=== PATIENT | female | born 1960 | race Caucasian/White ===

== ENCOUNTER 2018-02-26 07:39 | Outpatient (CLI) | payer OTHER, SELFPAY ==
[2018-02-26 07:50] VITALS: BP 115/73; PULSE 77; RESP 16; TEMP 37.1; O2SAT 97
--- NOTE | 2018-02-26 08:53 | DI.RAD_ITS ---
SYMPTOM/DIAGNOSIS: SACROILIAC JOINT DYSFUNCTION C-ARM: Fluoroscopy Time: 20.2 seconds 6.21mGy Fluoroscopy was provided for guidance with pain clinic SI joint injection. Hard copy images show placement of a needle at the inferior left SI joint. Please see procedure note for details.
[2018-02-26] MEDS: Bupivacaine 0.5% Pres-Free 30 ML VIAL IJ (09:25)
[2018-02-26] MEDS: methylPREDNISolone ACETATE 80 MG/ML VIAL IJ (09:26)
[2018-02-26 09:27] VITALS: BP 119/70; PULSE 72; RESP 18; O2SAT 100
[2018-02-26] MEDS: Omnipaque 240 MG/ML 50 ML BTL IJ (09:27)
--- NOTE | 2018-02-26 09:27 | PDOC.PAIN_ITS ---
Pain Clinic Procedure Note Current Active Problems Problem Status Onset Postlaminectomy syndrome of lumbar region Acute Sacroiliac joint dysfunction of left side Acute INTRA-ARTICULAR SI JOINT INJECTION RENEE BARFIELDNEFTALICLARENCE has been referred to the [facility] for intra- articular SI joint injection. COMMENTS: Patient is here for frequency ablation of her left SI joint. She had her last one done in June 2017. This was a cooled radiofrequency ablation. She said this. Previously she had 3 traditional radiofrequency ablations which did give her over 6 months relief on each occasion. She had radiofrequency ablation of the lumbar facet nerves which did not help. She also had SI joint injections which did help transiently. She continues to complain of pain into her left lower extremity on occasion. She has a persistent left foot drop. She notes that a few weeks after the procedure she has been complaining headache daily. The headache is not constant but comes and goes. She has seen Roberta Thao in January of this year and the recommendation was to obtain an updated MRI and then consider either transforaminal injection or repeating the traditional RF. I examined her today: Physical exam: Kemps maneuver was negative. She had a positive Gaenslen and Ben's maneuver for SI pain. Piyush sign is positive. When neurologic exam she has decreased sensation in her left lower extremity laterally on the dorsum of her foot. She has weakness on both flexion and extension at the ankle on the left. DTRs are decreased but symmetrically at the patella and Achilles. Impression: Postlaminectomy syndrome with L5 and L4 nerve involvement. SI joint dysfunction. I cannot explain why the last radiofrequency ablation was not effective as the cooled radiofrequency should be more effective. I also do not have an explanation for her daily headaches. Recommendation: #1. We will proceed with SI joint injection today for both diagnostic and therapeutic response. #2. If the above is not effective then we will obtain an updated MRI of her lumbar spine and reevaluate patient. #3. The above is effective but does not last would consider trying additional RF for more. #4. We briefly discussed spinal cord stimulation as an option for her chronic back and leg pain to think reviewed good option for her. I would like to see her back in the office to have a more thorough discussion of this. #5. I am referring her to neurology for evaluation of her headache. Consider nerve testing to better evaluate left lower extremity weakness. Patient was interviewed and the medical record reviewed. There were no medical , pharmacologic, radiographic or other structural contraindications to attempting fluoroscopically guided intra-articular SI joint injection. Risks and expected side effects as well as potential benefit of the procedure were reviewed and voiced concerns addressed. The printed consent form was signed and witnessed. Standard time-out procedure was performed. Patient was placed in the prone position on the fluoroscopy table and automated blood pressure cuff and pulse oximeter applied. The skin entry point for approaching {/left/} SI joints was identified under the most advantageous fluoroscopic view and marked. Following thorough Chlorhexadine preparation of the skin and draping and 1% lidocaine infiltration of the skin entry point and subcutaneous tissues, a 22 gauge spinal needle was placed under fluoroscopic guidance into { left/} SI joints was identified under the most advantageous fluoroscopic view and marked. Following thorough Chlorhexadine preparation of the skin and draping and 1% lidocaine infiltration of the skin entry point and subcutaneous tissues, a 22 gauge spinal needle was placed under fluoroscopic guidance into { left/ } SI joint. Intra-articular placement was confirmed by a clear arthrogram resulting from the injection of 0.25ml Omnipaque 240, 1ml 0.5% bupivacaine, and half ml (40mg) of 80mg concentration Depomedrol were injected intra- articularily with an initial reproduction of a significant component of the usual pain. Vital signs were stable throughout the procedure and were as recorded in the docflowsheet by the nursing staff. If given, dosages of intravenous drugs for anxiolysis and analgesia were documented in MAR. Follow up plans and appointments were discussed with the patient. Post procedure instruction was given as documented in nursing documentation and having met discharge criteria, and was discharged from the [facility]. COMMENTS: Pain went from 11/13-09/13. She will follow-up as needed. See comment above. CC: Orlando Gomez
== END 2018-02-26 07:59 ==
PROVIDERS: PCP Family Medicine; Visit Provider Anesthesiology Pain Medicine
DX: M53.3 Sacrococcygeal disorders, not elsewhere classified (principal); M54.5 Low back pain; M96.1 Postlaminectomy syndrome, not elsewhere classified
CPT/HCPCS: 27096; 72200; J1040; J2250; J3010; Q9967

== ENCOUNTER 2018-04-03 00:32 | Outpatient (CLI) | payer OTHER, SELFPAY ==
--- NOTE | 2018-04-03 08:35 | DI.MRI_ITS ---
SYMPTOMS/DIAGNOSIS: BACK PAIN MRI OF THE LUMBAR SPINE: Comparison is made with [id number]. T 1, T 2 and STIR sagittal and T 1 and T 2 axial sequences were performed. The patient is again noted to be status post laminectomy at L 5. There is mild post surgical scarring. There is moderate loss of disc height. There are circumferentially projecting endplate osteophytes and mild broad based disc bulging. There is moderate to severe bilateral neural foraminal narrowing, left greater than right. The T 12 - L 1 and L 1 - 2 discs appear intact. At L 2 - 3, there is mild disc bulging but no significant neural foraminal narrowing or central canal stenosis. At L 3 - 4, there is moderate broad based disc bulging. There is mild ligamentous hypertrophy. The findings combine to produce mild bilateral neural foraminal narrowing. The L 5 - S 1 disc appears normal. There are facet degenerative changes causing mild bilateral neural foraminal narrowing. The marrow signal and conus medullaris are unremarkable. IMPRESSION: Post surgical changes at L 4 - 5. There are degenerative disc changes causing moderate to severe bilateral neural foraminal narrowing. There is no evidence of a new or recurrent disc herniation.
== END 2018-04-03 00:52 ==
PROVIDERS: PCP Family Medicine; Visit Provider Nurse Practitioner Family
DX: M54.5 Low back pain (principal); M51.36 Other intervertebral disc degeneration, lumbar region; M99.53 Intervertebral disc stenosis of neural canal of lumbar region
CPT/HCPCS: 72148

== ENCOUNTER 2018-04-04 13:44 | Outpatient (CLI) | payer OTHER, SELFPAY ==
[2018-04-04 13:49] VITALS: BP 97/66; PULSE 85; RESP 18; TEMP 36.7; O2SAT 97
--- NOTE | 2018-04-04 13:52 | DI.RAD_ITS ---
SYMPTOMS/DIAGNOSIS: LUMBAR RADICULOPATHY C-ARM FLUOROSCOPY, PAIN CLINIC, LUMBAR SPINE: Fluoroscopy Time: 19.2 sec C-arm fluoroscopy was utilized by Dr. Jade during reported steroid injection. Hard copy shows needle placement at the left neural foramen at what appears to be the L5-S1 level with injection in the epidural space.
[2018-04-04 14:23] VITALS: BP 133/69; PULSE 81; RESP 16; O2SAT 99
[2018-04-04] MEDS: Dexamethasone Sod. Phos./Pres-Free 10 MG/ML VIAL IJ (14:25)
[2018-04-04] MEDS: Omnipaque 240 MG/ML 50 ML BTL IJ (14:25)
--- NOTE | 2018-04-04 14:26 | PDOC.PAIN_ITS ---
Pain Clinic Procedure Note Current Active Problems Problem Status Onset Lumbar radicular syndrome Acute LUMBAR / SACRAL TRANSFORAMINAL INJECTION RENEE BROOKS has been referred to the [facility] for a transforaminal nerve root block and steroid injection. COMMENTS: Patient was interviewed and the medical record reviewed. There were no medical , pharmacologic, radiographic or other structural contraindications to attempting fluoroscopically guided transforaminal nerve root block and epidural steroid injection. Risks and expected side effects as well as potential benefit of the procedure were reviewed and voiced concerns addressed. The printed consent form was signed and witnessed. Standard time-out procedure was performed. Patient was placed in the prone position on the fluoroscopy table and automated blood pressure cuff and pulse oximeter applied. Fluoroscopy was utilized to identify the left L5-S1 neural foramen between L5 and S1. A skin belgica was made for the needle insertion site. A Chlorhexadine prep was carried out, and sterile drapes were applied. Local anesthesia was achieved in the skin and subcutaneous tissues. A 22 gauge curved tip spinal needle was then inserted, advanced with fluoroscopic guidance into the neural foramen, confirmed on the lateral view. After negative aspiration, 2 ml of Omnipaque 240 was injected confirming position in A/P and lateral views. This showed a good spread of dye transforaminally into the epidural space. There was no vascular update with contrast injection under continuous fluoroscopy and digital substraction. 15 mg of Dexamethasone was injected, followed by 0.5 ml of 1% Xylocaine flush for the nerve root block, as well. There was no unusual discomfort expressed.The needle was withdrawn. The patient tolerated the procedure well. A Band-Aid was applied. Vital signs were stable throughout the procedure and were as recorded in nursing records. If given, dosages of intravenous drugs for anxiolysis and analgesia were documented in nursing records. Follow up plans and appointments were discussed. Post procedure instruction was given as documented in nursing records and patient was discharged in the care of an identified road train driver. COMMENTS: Call with any questions. Her leg pain was reproduced with the injection. CC: Orlando Gomez
== END 2018-04-04 14:04 ==
PROVIDERS: PCP Family Medicine; Visit Provider Preventive Medicine Occupational Medicine
DX: M54.16 Radiculopathy, lumbar region (principal)
CPT/HCPCS: 64483; 72100; Q9967

== ENCOUNTER 2018-07-29 02:16 | Outpatient (CLI) | payer MEDICAID, SELFPAY ==
--- NOTE | 2018-07-29 | PFT_ITS ---
PULMONARY FUNCTION TEST REPORT Patient - Meredith Dahl 60 DATE OF SERVICE 07/29/18 REQUESTING PROVIDER Orlando Gomez M.D. INTERPRETATION OF STUDY Spirometry shows no evidence of obstructive airways disease. No bronchodilator response. LUNG VOLUMES - Lung volumes show no evidence of restriction. DIFFUSION CAPACITY- Normal, with a somewhat suboptimal patient effort. AIRWAY RESISTANCE - Normal. IMPRESSION Overall normal pulmonary function study. Clinical correlation recommended. Mariah Thomason M.D. KRISTEN/ DD 07/31/18 DT 07/31/18
[2018-07-29] MEDS: Inhaler, Assist Device 1 EACH MC (09:08)
[2018-07-29] MEDS: Albuterol HFA 18 GM 200 PUFF INH IH (09:08)
== END 2018-07-29 02:36 ==
PROVIDERS: PCP Family Medicine; Visit Provider Family Medicine
DX: R06.02 Shortness of breath (principal); J20.9 Acute bronchitis, unspecified
CPT/HCPCS: 94060; 94150; 94726; 94729

== ENCOUNTER 2018-07-31 01:44 | Outpatient (CLI) | payer MEDICAID, SELFPAY ==
[2018-07-31 09:04] LABS: CREATININE 0.91 mg/dL (0.55-1.02)
[2018-07-31] MEDS: Gadoterate meglumine 20 ML VIAL 14 ML IVP (10:10)
--- NOTE | 2018-07-31 10:28 | DI.MRI_ITS ---
SYMPTOMS/DIAGNOSIS: UNILATERAL HEARING LOSS, H91.90 MRI OF THE BRAIN AND IAC'S: There are no prior comparison exams. T 2 sagittal, T 1, T 2, diffusion and gradient echo axial and post Gadolinium T 1 axial and coronal sequences were performed of the entire brain. Thin T 1 and T 2 axial as well as post Gadolinium T 1 axial and coronal sequences were performed through the internal auditory canals. The exam is somewhat limited by patient motion. No intracranial hemorrhage, mass or infarct is seen. The ventricles are normal in size. The vascular flow voids appear intact. There are no abnormal enhancing lesions. The sinuses and mastoid air cells appear clear. No acoustic neuroma or other CP angle mass is seen. The orbits and sinuses are unremarkable. IMPRESSION: Negative MRI of the brain and internal auditory canals.
== END 2018-07-31 02:04 ==
PROVIDERS: PCP Family Medicine; Visit Provider Otolaryngology Otolaryngology/Facial Plastic Surgery
DX: H93.291 Other abnormal auditory perceptions, right ear; H90.41 Sensorineural hearing loss, unilateral, right ear, with unrestricted hearing on the contralateral side; H93.19 Tinnitus, unspecified ear
CPT/HCPCS: 70553; 82565

== ENCOUNTER 2018-09-18 14:13 | Outpatient (CLI) | payer OTHER, SELFPAY ==
--- NOTE | 2018-09-18 06:00 | DI.RAD_ITS ---
SYMPTOMS/DIAGNOSIS: SACROILIAC JOINT DYSFUNCTION PAIN CLINIC SACROILIAC JOINT: Fluoroscopy Time: 30.5 sec, 9.80 mGy C-arm fluoroscopy was utilized by Dr. Jackson during a left SI joint injection. Hard copy confirms left SI joint injection.
[2018-09-18 14:29] VITALS: BP 103/65; PULSE 85; RESP 18; TEMP 37.1; O2SAT 97
[2018-09-18] MEDS: Bupivacaine 0.5% Pres-Free 10 ML VIAL IJ (15:02)
[2018-09-18] MEDS: methylPREDNISolone ACETATE 80 MG/ML VIAL IJ (15:02)
[2018-09-18] MEDS: Omnipaque 240 MG/ML 50 ML BTL IJ (15:05)
[2018-09-18 15:07] VITALS: BP 119/86; PULSE 84; RESP 19; O2SAT 99
--- NOTE | 2018-09-18 15:28 | PDOC.PAIN_ITS ---
Pain Clinic Procedure Note Current Active Problems Problem Status Onset Sacroiliac joint dysfunction of left side Acute INTRA-ARTICULAR SI JOINT INJECTION RENEE BROOKS has been referred to the [facility] for intra- articular SI joint injection. COMMENTS: Left SI joint dysfunction. Patient has had multiple injections as well as radiofrequency ablation. RF and helped but did not last as long on the most recent one. Patient was interviewed and the medical record reviewed. There were no medical, pharmacologic, radiographic or other structural contraindications to attempting fluoroscopically guided intra-articular SI joint injection. Risks and expected side effects as well as potential benefit of the procedure were reviewed and voiced concerns addressed. The printed consent form was signed and witnessed. Standard time-out procedure was performed. Patient was placed in the prone position on the fluoroscopy table and automated blood pressure cuff and pulse oximeter applied. The skin entry point for approaching { left/ } SI joints was identified under the most advantageous fluoroscopic view and marked. Following thorough Chlorhexadine preparation of the skin and draping and 1% lidocaine infiltration of the skin entry point and subcutaneous tissues, a 22 gauge spinal needle was placed under fluoroscopic guidance into { /left } SI joints was identified under the most advantageous fluoroscopic view and marked. Following thorough Chlorhexadine preparation of the skin and draping and 1% lidocaine infiltration of the skin entry point and subcutaneous tissues, a 22 gauge spinal needle was placed under fluoroscopic guidance into { /left/ } SI joint. Intra-articular placement was confirmed by a clear arthrogram resulting from the injection of 0.25ml Omnipaque 240, 1ml 0.5% bupivacaine, and half ml (40mg) of 80mg concentration Depomedrol were injected intra-articularily with an initial reproduction of a significant component of the usual pain. Vital signs were stable throughout the procedure and were as recorded in the docflowsheet by the nursing staff. If given, dosages of intravenous drugs for anxiolysis and analgesia were documented in MAR. Follow up plans and appointments were discussed with the patient. Post procedure instruction was given as documented in nursing documentation and having met discharge criteria, and was discharged from the [facility]. COMMENTS: Patient will follow-up as needed. Consider repeat radiofrequency ablation or possibly SI joint fusion. If she is interested for SI joint fusion would proceed with a diagnostic block with bupivacaine only . CC: Orlando Gomez
== END 2018-09-18 14:33 ==
PROVIDERS: PCP Family Medicine; Visit Provider Anesthesiology Pain Medicine
DX: M53.3 Sacrococcygeal disorders, not elsewhere classified (principal)
CPT/HCPCS: 27096; 72200; J1040; Q9967

== ENCOUNTER 2019-05-20 08:49 | Outpatient (CLI) | payer OTHER, SELFPAY ==
[2019-05-20 09:16] VITALS: BP 100/67; PULSE 74; RESP 18; TEMP 37.3; O2SAT 98
--- NOTE | 2019-05-20 09:43 | PDOC.PAIN_ITS ---
Pain Clinic Procedure Note Procedure Note Procedure Note: INTRA-ARTICULAR SI JOINT INJECTION Date of Service: May 20, 2019 Patient: RENEE BROOKS Provider: Mick Best MD COMMENTS: patient previously underwent left SI joint injection with Dr Jackson which provided ~6 months of pain relief. there was discussion of possible lateral sacral branch nerve ablation, however, given patient receives sustained pain relief with SI joint injections, she is scheduled for a repeat injection today. Pre-operative diagnosis: disorder of sacrum, scaroilitis Post-operative diagnosis: same as above RENEE BROOKS has been referred to the [facility] for intra-articular SI joint injection. Ms barajas was interviewed and the medical record reviewed. There were no medical, pharmacologic, radiographic or other structural contraindications to attempting fluoroscopically guided intra-articular SI joint injection. Risks and expected side effects as well as potential benefit of the procedure were reviewed with RENEE , and her voiced concerns were addressed. The printed consent form was signed and witnessed. Standard time-out procedure was performed. RENEE was placed in the prone position on the fluoroscopy table and automated blood pressure cuff and pulse oximeter applied. The skin entry point for approaching the left sacroiliac joint was identified under the most advantageous fluoroscopic view and marked. Following thorough Chlorhexadine preparation of the skin and draping and 1% lidocaine infiltration of the skin entry point and subcutaneous tissues, a 22 gauge spinal needle was placed under fluoroscopic guidance into the left sacroiliac joint. Intra-articular placement was confirmed by a clear arthrogram resulting from the injection of 0.25ml Omnipaque 240. 1.5 ml 0.5% Bupivocaine and 40mg Depomedrol was injected intra- articularily with an initial reproduction of a significant component of the usual pain. The needle was flushed with 0.5 cc of 1% Lidocaine and removed without difficulty. (49 cc of Omnipaque was wasted) RENEE s vital signs were stable throughout the procedure and were as recorded in the docflowsheet by the nursing staff. If given, dosages of intravenous drugs for anxiolysis and analgesia were documented in MAR. Follow up plans and appointments were discussed with the RENEE . Post procedure instruction was given as documented in nursing documentation and having met discharge criteria, RENEE was discharged from the [facility]. COMMENTS: No complications. F/U with Ms Roberta Milner APRN I personally performed this entire procedure. Mick Best MD Attending Physician-Pain Management
[2019-05-20 09:55] VITALS: BP 90/74; PULSE 70; RESP 18; O2SAT 98
[2019-05-20] MEDS: Omnipaque 240 MG/ML 50 ML BTL IJ (09:56)
[2019-05-20] MEDS: methylPREDNISolone ACETATE 80 MG/ML VIAL IJ (09:57)
[2019-05-20] MEDS: Bupivacaine 0.5% Pres-Free 10 ML VIAL IJ (09:58)
--- NOTE | 2019-05-20 10:36 | DI.RAD_ITS ---
EXAM: XR PAIN CLINIC SACRIOILIAC 2V CLINICAL HISTORY: Dx: Sacroiliac joint dysfunction, SI JOINT INJECTION TECHNIQUE: Realtime digital imaging was performed. CONTRAST MATERIAL: Water soluble contrast was administered. COMPARISON: No exams were available for comparison FINDINGS: Fluoroscopy was utilized by during the performance of a left sacroiliac joint injection. Micki snyder refer to the procedure report for complete details. FLUORO TIME: 24.2 seconds
== END 2019-05-20 09:09 ==
PROVIDERS: PCP Family Medicine; Visit Provider Internal Medicine
DX: M53.3 Sacrococcygeal disorders, not elsewhere classified (principal)
CPT/HCPCS: 27096; 72200; J1040; Q9967

== ENCOUNTER 2019-06-19 11:57 | Outpatient (CLI) | payer MEDICAID, SELFPAY ==
--- NOTE | 2019-06-19 11:30 | DI.US_ITS ---
EXAM: US SOFT TISSUE HEAD OR NECK CLINICAL HISTORY: FACIAL SWELLING R22.0, LT SIDE JAW AND FRONT OF EAR TECHNIQUE: Ultrasound performed using standard protocol. COMPARISON: No exams were available for comparison FINDINGS: There is a 1.3 x 0.8 x 0.9 cm reniform shaped mass in the subcutaneous tissues overlying the left man dible corresponding to the palpable abnormality. No internal blood flow is noted. The mass is heter ogeneous in echogenicity. There is a 1.2 x 0.7 x 0.4 centimeter hypoechoic mass in the left submandibular region. There is a h yperechoic eccentric vascular area noted. The finding sonographically is most suggestive of a benign appearing lymph node. There is a 2nd submandibular homogeneously hypoechoic nodule measuring 0.4 x 0.3 x 0.4 cm. IMPRESSION: 1. 1.3 x 0.8 x 0.9 cm heterogeneous mass overlying the left mandible corresponding to the palpable ab normality. The finding is nonspecific. This may represent a lymph node. A follow-up ultrasound may be considered to document resolution. 2. Benign-appearing submandibular lymph nodes.
== END 2019-06-19 12:17 ==
PROVIDERS: PCP Family Medicine; Visit Provider Nurse Practitioner Family
DX: R22.0 Localized swelling, mass and lump, head (principal); R59.0 Localized enlarged lymph nodes
CPT/HCPCS: 76536

== ENCOUNTER 2019-07-02 11:49 | Outpatient (CLI) | payer MEDICAID, SELFPAY ==
--- NOTE | 2019-07-02 | DI.RAD_ITS ---
EXAM: XR CHEST 2V PA LATERAL CLINICAL HISTORY: COUGH, RO5. TECHNIQUE: 2D digital imaging was performed. COMPARISON: No exams were available for comparison FINDINGS: LUNGS: Clear. No pleural abnormality seen. HEART: Normal. MEDIASTINUM: Normal. OTHER FINDINGS:Normal. BONE:Normal. IMPRESSION: No acute pulmonary findings. DATA REPOSITORY: RADIATION DOSE DELIVERED:
== END 2019-07-02 12:09 ==
PROVIDERS: PCP Family Medicine; Visit Provider Nurse Practitioner Family
DX: R05 Cough (principal)
CPT/HCPCS: 71046

== ENCOUNTER 2019-10-14 10:43 | Outpatient (CLI) | payer MEDICAID, SELFPAY ==
--- NOTE | 2019-10-14 06:00 | DI.RAD_ITS ---
EXAM: XR PAIN CLINIC SACRIOILIAC 2V CLINICAL HISTORY: Dx: Sacroiliac Joint Dysfunction TECHNIQUE: 2D and realtime digital imaging was performed. CONTRAST MATERIAL: Refer to procedure report. COMPARISON: No exams were available for comparison FINDINGS: Fluoroscopy was provided for Dr. Best during the performance of a left sacroiliac joint injection. Pl ease refer to the procedure report for complete details. Fluoro time: 45.2 seconds IMPRESSION:
[2019-10-14 10:54] VITALS: BP 103/62; PULSE 69; RESP 14; TEMP 37; O2SAT 97
[2019-10-14] MEDS: Bupivacaine 0.5% Pres-Free 10 ML VIAL IJ (11:29)
--- NOTE | 2019-10-14 11:29 | PDOC.PAIN_ITS ---
Pain Clinic Procedure Note Procedure Note Procedure Note: INTRA-ARTICULAR SI JOINT INJECTION Date of Service: October 14, 2019 Patient: RENEE BROOKS Provider: Mick Best MD COMMENTS: patient has had prior left sided sacroiliac joint injections as well as lateral branch nerve radiofrequency ablation therapy. She has gotten sustained pain relief from left SI joint injections and hopes to continue with this therapy. Pre-operative diagnosis: disorder of sacrum, scaroilitis Post-operative diagnosis: same as above RENEE BROOKS has been referred to the [facility] for intra- articular SI joint injection. Ms barajas was interviewed and the medical record reviewed. There were no medical, pharmacologic, radiographic or other structural contraindications to attempting fluoroscopically guided intra-articular SI joint injection. Risks and expected side effects as well as potential benefit of the procedure were reviewed with RENEE , and her voiced concerns were addressed. The printed consent form was signed and witnessed. Standard time-out procedure was performed. RENEE was placed in the prone position on the fluoroscopy table and automated blood pressure cuff and pulse oximeter applied. The skin entry point for approaching the left sacroiliac joint was identified under the most advantageous fluoroscopic view and marked. Following thorough Chlorhexadine preparation of the skin and draping and 1% lidocaine infiltration of the skin entry point and subcutaneous tissues, a 22 gauge 3.5'' spinal needle was placed under fluoroscopic guidance into the left sacroiliac joint. Intra-articular placement was confirmed by a clear arthrogram resulting from the injection of 0.25ml Omnipaque 240. 1.5 ml 0.5% Bupivocaine and 40mg Depomedrol (80mg/ml) was injected intra-articularily with an initial reproduction of a significant component of the usual pain. The needle was flushed with 0.5 cc of 1% Lidocaine and removed without difficulty. (49 cc of Omnipaque was wasted) RENEE s vital signs were stable throughout the procedure and were as recorded in the docflowsheet by the nursing staff. If given, dosages of intravenous drugs for anxiolysis and analgesia were documented in MAR. Follow up plans and appointments were discussed with the RENEE . Post procedure instruction was given as documented in nursing documentation and having met discharge criteria, RENEE was discharged from the [facility]. COMMENTS: No complications. Left SI joint space was visualized using both ipsilateral and contralateral oblique approaches, ipsilateral approach facilitated the entry into the intra-articular joint space. F/U with Ms Roberta Milner APRN I personally performed this entire procedure. Mick Best MD Attending Physician-Pain Management
[2019-10-14 11:30] VITALS: BP 105/73; PULSE 67; RESP 17; O2SAT 100
[2019-10-14] MEDS: methylPREDNISolone ACETATE 80 MG/ML VIAL IJ (11:30)
[2019-10-14] MEDS: Omnipaque 240 MG/ML 50 ML BTL IJ (11:30)
== END 2019-10-14 11:03 ==
PROVIDERS: PCP Family Medicine; Visit Provider Internal Medicine
DX: M53.3 Sacrococcygeal disorders, not elsewhere classified (principal)
CPT/HCPCS: 27096; 72200; J1040; Q9967

== ENCOUNTER 2020-02-24 00:11 | Outpatient (CLI) | payer MEDICAID, SELFPAY ==
--- NOTE | 2020-02-24 | DI.MAMMO_ITS ---
EXAM: MAMMO SCREENING CLINICAL HISTORY: SCREENING,[facility],Z00.00 TECHNIQUE: Mammograms were interpreted according to the usual protocol including computer analysis w [employer] CAD system, tomosynthesis and C-view imaging. COMPARISON: 2009 through 2016 FINDINGS: The breasts are composed of scattered fibroglandular densities, Breast Density category B. No suspicious masses or suspicious microcalcifications are seen. There is mild bilateral scarring re lated to previous breast reduction. No skin thickening or abnormal axillary lymph nodes are seen. There has been no significant change from prior exams. IMPRESSION: BI-RADS Category 2 - Benign Findings Yearly screening mammography is recommended. Breast Density - Category B, scattered fibroglandular densities. A negative radiographic report should not delay biopsy if a dominant or clinically suspicious mass is present. Up to ten percent of cancers are not identified on mammography. A negative report may reinforce clinical impression. Adenosis and dense breasts may obscure an underlying neoplasm. False positive reports average 6 to 10%. Patient will receive a letter notifying them of these results.
== END 2020-02-24 00:31 ==
PROVIDERS: PCP Family Medicine; Visit Provider Family Medicine
DX: Z12.31 Encounter for screening mammogram for malignant neoplasm of breast (principal); Z00.00 Encounter for general adult medical examination without abnormal findings
CPT/HCPCS: 77063; 77067

== ENCOUNTER 2020-07-19 17:15 | Outpatient (REF) | payer MEDICAID, SELFPAY ==
[2020-07-19 19:12] LABS: Hemoglobin A1C 5.6 % (<5.7)
[2020-07-19 19:22] LABS: Anion Gap 12.1 mmol/L (3-11); BUN 15 mg/dL (7-18); CO2 25.9 mmol/L (21.0-32.0); CREATININE 0.8 mg/dL (0.55-1.02); Calcium 9.1 mg/dL (8.5-10.1); Calculated LDL 122 mg/dL (<100); Chloride 104 mmol/L (98-107); Cholesterol 226 mg/dL (<200); Glucose 100 mg/dL (74-106); HDL Cholesterol 66 mg/dL (40-60); Magnesium 2.2 mg/dL (1.8-2.4); Sodium 142 mmol/L (136-145); TSH (W/Ref FT4) 0.88 uIU/mL (0.36-3.74); Triglyceride 190 mg/dL (<150)
== END 2020-07-19 17:16 | disposition home or self-care (01) ==
LOC: NCHCN 17:15
PROVIDERS: PCP Family Medicine; Visit Provider Family Medicine
DX: R53.83 Other fatigue (principal); Z13.1 Encounter for screening for diabetes mellitus; Z13.220 Encounter for screening for lipoid disorders
CPT/HCPCS: 80048; 80061; 83036; 83735; 84443

== ENCOUNTER 2020-09-10 04:42 | Outpatient (CLI) | payer MEDICAID, SELFPAY ==
--- NOTE | 2020-09-10 | DI.MRI_ITS ---
Exam(s) MR LUMBAR SPINE WO EXAM: MR LUMBAR SPINE WO CLINICAL HISTORY: ? SPINAL STENOSIS WITH NEUROGENIC CLAUDICATION,M48.062,BACK AND LEG PAIN. TECHNIQUE: Multiplanar multisequence MRI of the Lumbar spine was performed. COMPARISON: MR MR lumbar spine wo from 04/03/2018 FINDINGS: Bones: The last intervertebral disc space is designated the L5/S1 level for the numbering purpose of this examination. The vertebral body heights are well maintained. Post-laminectomy changes are see n at L4-5. Alignment is satisfactory. There are degenerative endplate signal changes most marked at the L4-5 level. Small endplate osteophytes are seen at multiple levels in the lumbar spine. Cord: The conus tip ends at the T12 level. It is of normal size and signal intensity. T12-L1: No disc herniations or bulges are present. No central spinal canal or neural foraminal stenos is. L1-2: No disc herniations or bulges are present. No central spinal canal or neural foraminal stenosis . L2-3: There is a mild diffuse disc bulge. No significant central spinal canal stenosis. No signific ant neural foraminal stenosis. L3-4: There is a mild diffuse disc bulge. No focal disc herniation. Mild degenerative changes of th e facets. No significant central spinal canal stenosis. There is very mild bilateral neural foramin al stenosis. L4-5: Mildly prominent posterior osteophyte. No significant central spinal canal stenosis. There is facet arthropathy. There is mild bilateral neural foraminal stenosis. L5-S1: No disc herniations or bulges are present. No central spinal canal or neural foraminal stenosi s. Soft tissues: The visualized SI joints and sacrum are well maintained. The paraspinal soft tissues ar e unremarkable. IMPRESSION: Multilevel degenerative changes in the lumbar spine resulting in multilevel neural foraminal stenosis as described above. DATA REPOSITORY:
== END 2020-09-10 05:02 ==
PROVIDERS: PCP Family Medicine; Visit Provider Pain Medicine Interventional Pain Medicine
DX: M54.5 Low back pain (principal); M79.604 Pain in right leg; M79.605 Pain in left leg; Z98.890 Other specified postprocedural states; M51.37 Other intervertebral disc degeneration, lumbosacral region; M48.061 Spinal stenosis, lumbar region without neurogenic claudication
CPT/HCPCS: 72148

== ENCOUNTER 2021-07-22 17:15 | Outpatient (REF) | payer MEDICAID, SELFPAY ==
[2021-07-25 09:39] LABS: Cyclic Citrullinated Peptide <2.5 U/mL (<5.0)
[2021-07-25 14:47] LABS: ANA Interpretation Negative (Negative)
== END 2021-07-22 17:16 | disposition home or self-care (01) ==
LOC: NCHCN 17:15
PROVIDERS: PCP Family Medicine; Visit Provider Family Medicine
DX: M12.841 Other specific arthropathies, not elsewhere classified, right hand (principal); M12.842 Other specific arthropathies, not elsewhere classified, left hand; M19.041 Primary osteoarthritis, right hand; M19.042 Primary osteoarthritis, left hand
CPT/HCPCS: 86200; 86038

== ENCOUNTER 2021-08-15 01:14 | Outpatient (CLI) | payer MEDICAID, SELFPAY ==
--- NOTE | 2021-08-15 14:55 | DI.RAD_ITS ---
Exam(s) XR ARTHRITIS SERIES EXAM: XR ARTHRITIS SERIES CLINICAL HISTORY: ARTHRITIS, HAND, M12.849. TECHNIQUE: 2D digital imaging was performed. Two views of both hands. COMPARISON: No exams were available for comparison FINDINGS: BONES: No acute fracture is present. No bony destructive lesion is seen. No erosions. Normal minera lization. JOINTS: No dislocation present. Narrowing and periarticular spurring greatest at the distal interpha langeal joints and interphalangeal joint of the thumb.. Mild joint space narrowing of the proximal i nterphalangeal joints SOFT TISSUE: Normal. IMPRESSION: Findings consistent with osteoarthritis greatest of the distal interphalangeal joints of the fingers. DATA REPOSITORY: RADIATION DOSE DELIVERED:
== END 2021-08-15 01:34 ==
PROVIDERS: PCP Family Medicine; Visit Provider Family Medicine
DX: M19.041 Primary osteoarthritis, right hand; M19.042 Primary osteoarthritis, left hand
CPT/HCPCS: 73120

== ENCOUNTER 2021-09-12 00:26 | Outpatient (CLI) | payer MEDICAID, SELFPAY ==
--- NOTE | 2021-09-12 15:14 | DI.MAMMO_ITS ---
Exam(s) MAMMO SCREENING EXAM: MAMMO SCREENING CLINICAL HISTORY: SCREENING, [facility], Z00.00 TECHNIQUE: Mammograms were interpreted according to the usual protocol including computer analysis w [employer] CAD system, tomosynthesis and C-view imaging. COMPARISON: 2013 through 2019 FINDINGS: The breasts are composed of scattered fibroglandular densities, Breast Density category B. No suspicious masses or suspicious microcalcifications are seen. Stable area of nodularity inferior left breast. No skin thickening or abnormal axillary lymph nodes are seen. There has been no significant change from prior exams. IMPRESSION: BI-RADS Category 1, Negative mammogram Yearly screening mammography is recommended. Breast Density - Category B, scattered fibroglandular densities. A negative radiographic report should not delay biopsy if a dominant or clinically suspicious mass is present. Up to ten percent of cancers are not identified on mammography. A negative report may reinforce clinical impression. Adenosis and dense breasts may obscure an underlying neoplasm. False positive reports average 6 to 10%. Patient will receive a letter notifying them of these results.
== END 2021-09-12 00:46 ==
PROVIDERS: PCP Family Medicine; Visit Provider Family Medicine
DX: Z12.31 Encounter for screening mammogram for malignant neoplasm of breast (principal)
CPT/HCPCS: 77063; 77067

== ENCOUNTER 2022-10-31 00:57 | Outpatient (CLI) | payer MEDICAID, SELFPAY ==
--- NOTE | 2022-10-31 08:00 | DI.MAMMO_ITS ---
Exam(s) MAMMO SCREENING EXAM: MAMMO SCREENING CLINICAL HISTORY: SCREENING, Z12.39 TECHNIQUE: Mammograms were interpreted according to the usual protocol including computer analysis w [employer] CAD system, tomosynthesis and C-view imaging. COMPARISON: 2013 through 2021 FINDINGS: The breasts are composed of scattered fibroglandular densities, Breast Density category B. No suspicious masses or suspicious microcalcifications are seen. Stable areas nodularity again noted in the inferior left breast. No skin thickening or abnormal axillary lymph nodes are seen. There has been no significant change from prior exams. IMPRESSION: BI-RADS Cat 2 - Benign Findings Yearly screening mammography is recommended. Breast Density - Category B, scattered fibroglandular densities. A negative radiographic report should not delay biopsy if a dominant or clinically suspicious mass is present. Up to ten percent of cancers are not identified on mammography. A negative report may reinforce clinical impression. Adenosis and dense breasts may obscure an underlying neoplasm. False positive reports average 6 to 10%. Patient will receive a letter notifying them of these results.
== END 2022-10-31 01:17 ==
LOC: DI 00:58
PROVIDERS: PCP Family Medicine; Visit Provider Family Medicine
DX: Z12.31 Encounter for screening mammogram for malignant neoplasm of breast (principal); R92.8 Other abnormal and inconclusive findings on diagnostic imaging of breast
CPT/HCPCS: 77063; 77067

== ENCOUNTER 2023-06-11 10:49 | Outpatient (REF) | payer MEDICAID, SELFPAY | END 2023-06-11 10:50 | disposition home or self-care (01) | LOC: NCHCN 10:49 | PROVIDERS: PCP Family Medicine; Visit Provider Student in an Organized Health Care Education/Training Program | DX: J02.9 Acute pharyngitis, unspecified (principal) | CPT/HCPCS: 87081 ==

== ENCOUNTER 2023-08-21 15:04 | Outpatient (REF) | payer MEDICAID, SELFPAY ==
[2023-08-21 16:24] LABS: ALT 28 U/L (14-59); Calculated LDL 139 mg/dL (<100); Cholesterol 230 mg/dL (<200); HDL Cholesterol 81 mg/dL (40-60); Triglyceride 54 mg/dL (<150)
[2023-08-21 16:26] LABS: Hemoglobin A1C 5.4 % (<5.7)
[2023-08-22 11:20] LABS: HIV-1/2 Ag & Ab Screen Negative (Negative)
== END 2023-08-21 15:05 | disposition home or self-care (01) ==
LOC: NCHCN 15:04
PROVIDERS: PCP Family Medicine; Visit Provider Family Medicine
DX: H90.5 Unspecified sensorineural hearing loss (principal); L98.9 Disorder of the skin and subcutaneous tissue, unspecified; R09.81 Nasal congestion
CPT/HCPCS: 80061; 87102; 87206; 87389; 83036; 84460

== ENCOUNTER → 2023-11-02 00:43 | Outpatient (CLI) | payer MEDICAID, SELFPAY ==
--- NOTE | 2023-11-02 15:30 | DI.MAMMO_ITS ---
Exam(s) MAMMO SCREENING EXAM: MAMMO SCREENING CLINICAL HISTORY: SCREENING, Z12.31. TECHNIQUE: Bilateral full field digital CC and MLO mammographic images were obtained with 3D tomosyn thesis and utilizing computer aided detection (CAD). COMPARISON: Prior mammograms dating back to 2013 were reviewed. Most recent was October 2022. FINDINGS: There has been no significant change in the appearance and distribution of the fibroglandular tissue. There are no CAD designations. Asymmetric nodular densities in left breast are unchanged from prior mammograms. No new spiculated masses. There is no new significant architectural distortion nor new skin thickening-retraction. IMPRESSION: Stable benign-appearing findings. No obvious radiographic evidence of malignancy. BI-RADS Category 2 - Benign Findings Breast Density - Category B - Scattered areas of fibroglandular density Breast density Category C or D implies that the patient has dense breast tissue. Dense breast tissue can make it harder to find cancer on a mammogram. Dense breast tissue is also associated with an incr eased risk of breast cancer. This information about the result of the mammogram report was provided to the patient to raise their awareness. Use this report when you speak with the patient about their risks for breast cancer, which includes their family history. At that time, you may recommend additional screening tests (Ultrasoun d or MRI) as these tests may add significant information. A negative radiographic report should not delay biopsy if a dominant or clinically suspicious mass is present. Up to ten percent of cancers are not identified on mammography. A negative report may reinforce clinical impression. Adenosis and dense breasts may obscure an underlying neoplasm. False positive reports average 6 to 10%. Patient will receive a letter notifying them of these results.
== END ==
PROVIDERS: PCP Family Medicine; Visit Provider Family Medicine
DX: Z12.31 Encounter for screening mammogram for malignant neoplasm of breast (principal)
CPT/HCPCS: 77063; 77067

== ENCOUNTER 2024-07-10 20:37 | Outpatient (REF) | payer MEDICAID, SELFPAY ==
[2024-07-10 19:30] LABS: Abs Immature Grans 0.02 10^3/uL (0.0-0.06); Absolute Basophil Count 0.05 10^3/uL (0.0-0.2); Absolute Eosinophil Count 0.11 10^3/uL (0.0-0.7); Absolute Lymphocyte Count 2.33 10^3/uL (1.2-3.4); Absolute Monocyte Count 0.43 10^3/uL (0.1-0.8); Absolute Neutrophil Count 4.44 10^3/uL (1.2-6.7); Basophils % 0.7 %; Eosinophils % 1.5 %; Immature Grans % 0.3 %; Lymphocytes % 31.6 %; MCH 29.7 pg (27.0-33.0); MCHC 34.2 % (32.0-36.0); MCV 87 fL (80-95); MPV 10.2 fL (8.0-11.0); Monocytes % 5.8 %; Neutrophils % 60.1 %; Platelet Count 243 10^3/uL (130-400); RBC 4.37 10^6/uL (3.93-5.22); RDW 13.2 % (11.7-14.6); RDW-SD 42.2 fL; WBC 7.38 10^3/uL (4.4-10.8)
[2024-07-10 20:28] LABS: Anion Gap 8.9 mmol/L (3-11); BUN 20 mg/dL (7-18); CO2 27.1 mmol/L (21.0-32.0); CREATININE 0.9 mg/dL (0.55-1.02); Calcium 9.6 mg/dL (8.5-10.1); Chloride 106 mmol/L (98-107); Estimated GFR 71.39 (mL/min/1.73m2); Glucose 80 mg/dL (74-106); Potassium 4.1 mmol/L (3.5-5.1); Sodium 142 mmol/L (136-145); TSH 0.39 uIU/mL (0.36-3.74); Vitamin D 25 Total 49 ng/mL (30-100)
== END 2024-07-10 20:38 | disposition home or self-care (01) ==
LOC: NCHCN 20:37
PROVIDERS: PCP Student in an Organized Health Care Education/Training Program; Visit Provider Student in an Organized Health Care Education/Training Program
DX: R68.89 Other general symptoms and signs (principal); E55.9 Vitamin D deficiency, unspecified
CPT/HCPCS: 80048; 82306; 84439; 84443; 85025

== ENCOUNTER 2024-11-18 16:37 | Outpatient (REF) | payer MEDICAID, SELFPAY ==
[2024-11-18 20:41] LABS: Abs Immature Grans 0.01 10^3/uL (0.0-0.06); HCT 40.3 % (36.0-46.0); HGB 13.4 g/dL (11.2-15.7); Immature Grans % 0.2 %; MCH 29.2 pg (27.0-33.0); MCHC 33.3 % (32.0-36.0); MCV 88 fL (80-95); MPV 10.8 fL (8.0-11.0); Platelet Count 240 10^3/uL (130-400); RBC 4.59 10^6/uL (3.93-5.22); RDW 12.8 % (11.7-14.6); RDW-SD 41.0 fL; WBC 5.19 10^3/uL (4.4-10.8)
[2024-11-18 20:43] LABS: ESR 2 mm/hr (0-30)
[2024-11-18 21:01] LABS: ALT 23 U/L (14-59); AST 15 U/L (15-37); Albumin 4.1 g/dL (3.4-5.0); Alkaline Phosphatase 86 U/L (46-116); Anion Gap 10.6 mmol/L (3-11); BUN 15 mg/dL (7-18); Bilirubin, Total 1.1 mg/dL (0.2-1.0); C-Reactive Protein < 0.50 mg/dL (<or=0.5); CO2 26.4 mmol/L (21.0-32.0); Calcium 9.3 mg/dL (8.5-10.1); Chloride 105 mmol/L (98-107); Estimated GFR 82.23 (mL/min/1.73m2); Glucose 98 mg/dL (74-106); Potassium 4.4 mmol/L (3.5-5.1); Sodium 142 mmol/L (136-145); Total Protein 6.9 g/dL (6.4-8.2)
[2024-11-20 10:35] LABS: Lyme Ab w Rflx to Lyme Confirm Negative (Negative)
[2024-11-23 00:10] LABS: B. miyamotoi PCR Negative (Negative); Babesia divergens/MO-1 Negative (Negative); Ehrlichia muris eauclairensis Negative (Negative)
== END 2024-11-18 16:38 | disposition home or self-care (01) ==
LOC: NCHCN 16:37
PROVIDERS: PCP Student in an Organized Health Care Education/Training Program; Visit Provider Student in an Organized Health Care Education/Training Program
DX: R53.83 Other fatigue (principal); W57.XXXA Bitten or stung by nonvenomous insect and other nonvenomous arthropods, initial encounter
CPT/HCPCS: 80053; 85652; 87798; 85025; 86140; 86618

== ENCOUNTER 2024-11-21 00:19 | Outpatient (CLI) | payer MEDICAID, SELFPAY ==
--- NOTE | 2024-11-21 08:00 | DI.RAD_ITS ---
Exam(s) XR FOOT RT COMPLETE EXAM: XR FOOT RT COMPLETE CLINICAL HISTORY: Right foot pain M79.671 signs of arthritis, degeneration. TECHNIQUE: 2D digital imaging was performed. COMPARISON: No exams were available for comparison FINDINGS: 3 views No evidence of fracture or diastasis of the Lisfranc joint. The great toe metatarsophalangeal joint exhibits mild degenerative change. There is an element of mild medial subluxation of the proximal phalanx of the 2nd toe at the level the MTP joint. No fractures at this level. Other MTP joints appear unremarkable. There is a moderate size inferior calcaneal spur. No calcification in the plantar fascia up. There is mild degenerative change noted in the medial aspect of the talonavicular joint. No erosions. No pes planus. No osseous tarsal coalition. IMPRESSION: As above. DATA REPOSITORY: RADIATION DOSE DELIVERED:
== END 2024-11-21 00:39 ==
PROVIDERS: PCP Student in an Organized Health Care Education/Training Program; Visit Provider Student in an Organized Health Care Education/Training Program
DX: M19.071 Primary osteoarthritis, right ankle and foot (principal); M77.31 Calcaneal spur, right foot
CPT/HCPCS: 73630

== ENCOUNTER 2025-01-20 14:58 | Outpatient (REF) | payer MEDICAID, SELFPAY ==
[2025-01-20 20:07] LABS: Anion Gap 8.8 mmol/L (3-11); BUN 16 mg/dL (7-18); CO2 28.2 mmol/L (21.0-32.0); Calcium 9.6 mg/dL (8.5-10.1); Chloride 104 mmol/L (98-107); Estimated GFR 71.39 (mL/min/1.73m2); Glucose 95 mg/dL (74-106); Magnesium 2.5 mg/dL (1.8-2.4); Potassium 4.2 mmol/L (3.5-5.1); Sodium 141 mmol/L (136-145)
== END 2025-01-20 14:59 | disposition home or self-care (01) ==
LOC: NCHCN 14:58
PROVIDERS: PCP Student in an Organized Health Care Education/Training Program; Visit Provider Student in an Organized Health Care Education/Training Program
DX: R25.2 Cramp and spasm (principal)
CPT/HCPCS: 80048; 83735

== ENCOUNTER 2025-02-03 02:21 | Outpatient (CLI) | payer MEDICAID, SELFPAY ==
--- NOTE | 2025-02-03 08:23 | DI.MAMMO_ITS ---
Exam(s) MAMMO SCREENING EXAM: MAMMO SCREENING CLINICAL HISTORY: SCREENING MAMMO Z12.31,ANNUAL. TECHNIQUE: Bilateral full field digital CC and MLO mammographic images were obtained with 3D tomosynthesis and utilizing computer aided detection (CAD). COMPARISON: Prior mammograms dating back to 2016 were reviewed. FINDINGS: There are no CAD designations. No new right breast findings. Previously described asymmetric nodular densities in the left breast remain unchanged from prior mammograms dating back to 2016. There are no new spiculated masses nor new malignant appearing microcalcification groups. There is no significant architectural distortion nor skin thickening-retraction. IMPRESSION: No radiographic evidence of malignancy. Stable benign findings. BI-RADS Category 2 - Benign Findings Breast Density - Category B - There are scattered areas of fibroglandular density. Breast density Category C or D implies that the patient has dense breast tissue. Dense breast tissue can make it harder to find cancer on a mammogram. Dense breast tissue is also associated with an increased risk of breast cancer. This information about the result of the mammogram report was provided to the patient to raise their awareness. Use this report when you speak with the patient about their risks for breast cancer, which includes their family history. At that time, you may recommend additional screening tests (Ultrasound or MRI) as these tests may add significant information. A negative radiographic report should not delay biopsy if a dominant or clinically suspicious mass is present. Up to ten percent of cancers are not identified on mammography. A negative report may reinforce clinical impression. Adenosis and dense breasts may obscure an underlying neoplasm. False positive reports average 6 to 10%. Patient will receive a letter notifying them of these results.
== END 2025-02-03 02:41 ==
LOC: DI 02:21
PROVIDERS: PCP Student in an Organized Health Care Education/Training Program; Visit Provider Student in an Organized Health Care Education/Training Program
DX: Z12.31 Encounter for screening mammogram for malignant neoplasm of breast (principal)
CPT/HCPCS: 77063; 77067

== ENCOUNTER → 2025-03-31 01:39 | Outpatient (CLI) | payer MEDICAID, SELFPAY ==
--- NOTE | 2025-03-31 06:00 | DI.RAD_ITS ---
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 TECHNIQUE: 2D digital imaging was performed of the left foot. Three images were obtained. AP, oblique and lateral views were obtained. COMPARISON: No exams were available for comparison FINDINGS: BONES: No acute fracture is present. No bony destructive lesion is seen. There is a small plantar calcaneal spur. JOINTS: No dislocation present. There are degenerative changes seen at the tarsometatarsal joints. This is best appreciated on the lateral view. SOFT TISSUE: Normal. IMPRESSION: Mild degenerative changes of the foot. Calcaneal spur. DATA REPOSITORY: RADIATION DOSE DELIVERED:
--- NOTE | 2025-03-31 06:00 | DI.RAD_ITS ---
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 TECHNIQUE: 2D digital imaging was performed of the right foot. Three images were obtained. AP, oblique and lateral views were obtained. COMPARISON: CR XR FOOT RT COMPLETE from 11/21/2024 FINDINGS: BONES: No acute fracture is present. No bony destructive lesion is seen. There is a small plantar calcaneal spur. JOINTS: There is again seen mild medial subluxation of the 2nd and 3rd MTP joints. There is mild medial deviation of the 1st metatarsal. There are mild degenerative changes seen in the foot particularly at the 1st MTP joint and the 3rd TMT joint. SOFT TISSUE: Normal. IMPRESSION: Stable appearance of the right foot since 11/21/2024. No acute abnormality. DATA REPOSITORY: RADIATION DOSE DELIVERED:
== END ==
LOC: DI 01:39
PROVIDERS: PCP Student in an Organized Health Care Education/Training Program; Visit Provider Podiatrist
DX: Q66.221 Congenital metatarsus adductus, right foot (principal); Q66.222 Congenital metatarsus adductus, left foot; M20.41 Other hammer toe(s) (acquired), right foot; M20.42 Other hammer toe(s) (acquired), left foot; M19.072 Primary osteoarthritis, left ankle and foot; M77.32 Calcaneal spur, left foot
CPT/HCPCS: 73630